=== PATIENT | female | born 1980 | race Caucasian/White ===

== ENCOUNTER 2021-07-04 11:42 | Emergency (ER) | payer MEDICAID ==
[~2021-07-04] VITALS: Ht 154.9 cm; Wt 74.8 kg
[2021-07-04 11:42] VITALS: BP_SYST 138
--- NOTE | 2021-07-04 11:42 | NUR ---
BROUGHT BACK TO BED #2 AND TRIAGED. REPORT GIVEN TO PAOLA
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
--- NOTE | 2021-07-04 13:22 | NUR ---
patient waiting for disposition. Addendum: 07/04/21 at 1324 by [id number] patient waiting for disposition, continues to have complaints of numbness and tingling in top lip. comfort and safety maintained during visit
[2021-07-04] MEDS ORDERED: IBUP-1969 PO (13:32)
[2021-07-04] MEDS ORDERED: HYDR-3917 PO (13:32)
[2021-07-04 13:34] VITALS: BP_SYST 110
--- NOTE | 2021-07-04 14:09 | NUR ---
patient discharged at this time in stable condition, vss, patient dishcarged with instructions and prescription for pain medication. patient's questions answered. no peripheral line started this visit. patient adminsitered ice packs and instructions on how to use them
== END 2021-07-04 14:08 | disposition home or self-care (01) ==
LOC: SED 11:42
DX: S00.83XA Contusion of other part of head, initial encounter (principal); Z88.5 Allergy status to narcotic agent; Z79.899 Other long term (current) drug therapy; V18.4XXA Pedal cycle driver injured in noncollision transport accident in traffic accident, initial encounter; Y93.89 Activity, other specified; Y92.89 Other specified places as the place of occurrence of the external cause; Y99.8 Other external cause status
CPT/HCPCS: 70486-TC; 76376; 99284

== ENCOUNTER 2022-07-01 21:47 | Emergency (ER) | payer MEDICAID ==
[~2022-07-01] VITALS: Ht 154.9 cm; Wt 65.8 kg
[~2022-07-01 21:47] MED LIST: HYDR-3917 PO; IBUP-1969 PO
[2022-07-01 22:32] VITALS: BP_SYST 151
[2022-07-01 23:56] LABS: BILIRUBIN,URINE NEGATIVE (NEGATIVE); BLOOD, URINE 3+ (NEGATIVE); CLARITY/URINE SL CLOUDY (CLEAR); GLUCOSE,URINE NEGATIVE (NEGATIVE); KETONES,URINE NEGATIVE (NEGATIVE); LEUKOCYTE ESTERASE ,URINE 2+ (NEGATIVE); NITRITE, URINE NEGATIVE (NEGATIVE); PROTEIN URINE 2+ (NEGATIVE); UROBILINOGEN,URINE 0.2 (0.2-1.0)
[2022-07-02 00:06] LABS: COLOR,URINE RED (YELLOW)
[2022-07-02 00:08] LABS: RBC,URINE >100 /HPF (0-3)
[2022-07-02 00:09] LABS: BACTERIA,URINE FEW /HPF (None Seen); WBC,URINE 20-50 /HPF (0-3)
[2022-07-02] MEDS ORDERED: CEPH-548 PO (00:39)
[2022-07-02 01:28] VITALS: BP_SYST 145
== END 2022-07-02 01:28 | disposition home or self-care (01) ==
LOC: SED 21:47
DX: N39.0 Urinary tract infection, site not specified (principal); R35.0 Frequency of micturition; R30.0 Dysuria; R31.9 Hematuria, unspecified; J45.909 Unspecified asthma, uncomplicated; Z79.899 Other long term (current) drug therapy
CPT/HCPCS: 81000; 81025; 87086; 99283

== ENCOUNTER 2022-09-22 05:30 | Emergency (ER) | payer MEDICAID ==
[~2022-09-22] VITALS: Ht 157.5 cm; Wt 68.0 kg
[~2022-09-22 05:30] MED LIST changes: +CEPH-548 PO
[2022-09-22 05:57] VITALS: BP_SYST 138
--- NOTE | 2022-09-22 05:57 | NUR ---
Patient triaged and placed in ED bed 6 and connected to monitor. VSS and patient appears in no acute distress at this time. Accompanied by significant other. ER MD See made aware.
--- NOTE | 2022-09-22 05:58 | NUR ---
Report given to NILA Vicente to assume care at this time.
--- NOTE | 2022-09-22 06:08 | NUR ---
ER MD Pearson at bedside examining patient.
[2022-09-22] MEDS ORDERED: LORazepam 2 MG/ML VIAL IVP ONE ×2 (06:30→06:45)
[2022-09-22 06:36] LABS: BASOPHILS # (AUTO) 0.1 K/uL (0.0-0.2); BASOPHILS % (AUTO) 0.7 % (0.0-2.0); EOSINOPHILS # (AUTO) 0.1 K/uL (0.0-0.4); EOSINOPHILS % (AUTO) 0.8 % (0.0-4.0); HEMOGLOBIN 14.2 g/dL (12.0-16.0); LYMPHOCYTES # (AUTO) 3.3 K/uL (1.0-5.5); LYMPHOCYTES % (AUTO) 36.1 % (20.5-51.5); MEAN CORPUSCULAR HEMOGLOBIN 31 pg (27-31); MEAN CORPUSCULAR HGB CONC 34 % (32-36); MEAN CORPUSCULAR VOLUME 92 fL (79.0-98.0); MONOCYTES # (AUTO) 0.6 K/uL (0.0-1.0); MONOCYTES % (AUTO) 6.5 % (1.7-9.3); NEUTROPHILS # (AUTO) 5.2 K/uL (1.8-7.7); NEUTROPHILS % (AUTO) 55.9 % (40.0-70.0); PLATELET COUNT (AUTO) 323 K/uL (130-430); RED BLOOD CELL COUNT(AUTO) 4.58 MIL/uL (4.2-6.2); RED CELL DISTRIBUTION WIDTH 12.9 % (9.0-15.0); WHITE BLOOD COUNT (AUTO) 9.3 K/uL (4.8-10.8)
[2022-09-22 07:01] LABS: ALANINE AMINOTRANSFERASE 29 U/L (12-78); ALBUMIN 3.7 g/dL (3.4-4.8); ANION GAP 13 (5-15); ASPARTATE AMINOTRANSFERASE 16 U/L (10-37); CALCIUM 8.9 mg/dL (8.4-11.0); CHLORIDE 104 mmol/L (98-107); CREATININE 0.94 mg/dL (0.55-1.30); GFR AFRICAN AMERICAN 84 mL/min (>90); GLUCOSE 100 mg/dL (70-99); TOTAL BILIRUBIN 0.3 mg/dL (0.0-1.0); UREA NITROGEN, BLOOD 13 mg/dL (8-21)
--- NOTE | 2022-09-22 07:30 | NUR ---
RECEIVED PT FROM NILA CERVANTES. ASSUMED CARE.
[2022-09-22 09:38] VITALS: BP_SYST 138
--- NOTE | 2022-09-22 09:39 | NUR ---
Patient given written and verbal discharge instructions and verbalizes understanding. ER MD discussed with patient the results and treatment provided. Patient in stable condition. ID arm band removed. IV catheter removed intact and dressing applied, no active bleeding. Patient educated on pain management and to follow up with PMD. Pain Scale . Opportunity for questions provided and answered. Medication side effect fact sheet provided.
== END 2022-09-22 09:00 | disposition home or self-care (01) ==
LOC: SED 05:30
DX: R07.89 Other chest pain (principal); F19.10 Other psychoactive substance abuse, uncomplicated; Z88.6 Allergy status to analgesic agent; Z79.899 Other long term (current) drug therapy
CPT/HCPCS: 99285; 96374; 71045; 80053; 82550; 85025; 84484; 36415; 93005; J2060